=== PATIENT | female | born 1965 | race Caucasian/White ===

== ENCOUNTER 2020-03-16 06:00 | Day surgery (SDC) | payer OTHER ==
[2020-03-15 09:09] LABS: COVID AG,FIA SOURCE NASOPHARYNGEAL
[~2020-03-16] VITALS: Ht 160 cm; Wt 68.5 kg
[~2020-03-16 06:00] MED LIST: CYCLOPENTOLATE HCL 1% 2 ML OPHTHALMIC SOLUTION ONE; KETOROLAC TROMETHAMINE 0.5% 5 ML OPHTHALMIC SOLUTION ONE; MOXIFLOXACIN HCL 0.5% 3 ML OPHTHALMIC SOLUTION ONE; PHENYLEPHRINE HCL 2.5% 2 ML OPHTHALMIC SOLUTION ONE; RINGERS SOLUTION,LACTATED 500 ML IV ONE; TETRACAINE HCL/PF 0.5% 4 ML OPHTHALMIC SOLUTION OD ONE; TETRACAINE HCL/PF 0.5% 4 ML OPHTHALMIC SOLUTION ONE; TROPICAMIDE 1% 2 ML OPHTHALMIC SOLUTION ONE
[2020-03-16] MEDS ORDERED: FentaNYL CITRATE-PF 100 MCG/2 ML VIAL IVP ONE (06:01)
[2020-03-16] MEDS ORDERED: MIDAZOLAM HCL 2 MG/2 ML VIAL IVP ONE (06:01)
[2020-03-16] MEDS: KETOROLAC TROMETHAMINE 0.5% 5 ML OPHTHALMIC SOLUTION OD SCH ×3 (06:46→07:13)
[2020-03-16] MEDS: PHENYLEPHRINE HCL 2.5% 2 ML OPHTHALMIC SOLUTION OD SCH ×3 (06:46→07:13)
[2020-03-16] MEDS: TROPICAMIDE 1% 2 ML OPHTHALMIC SOLUTION OD SCH ×3 (06:46→07:13)
[2020-03-16] MEDS: CYCLOPENTOLATE HCL 1% 2 ML OPHTHALMIC SOLUTION OD SCH ×3 (06:46→07:13)
[2020-03-16] MEDS: MOXIFLOXACIN HCL 0.5% 3 ML OPHTHALMIC SOLUTION OD SCH ×3 (06:46→07:14)
[2020-03-16] MEDS ORDERED: ERTU5TAB PO (06:54)
[2020-03-16] MEDS ORDERED: HUM10VIA SQ ×2 (06:54)
[2020-03-16 07:16] LABS: GLUCOMETER DEV NAME(LOC) SDS.; GLUCOSE,POINT OF CARE 168 MG/DL (70-110)
[2020-03-16] MEDS ORDERED: AcetaZOLAMIDE SODIUM 500 MG VIAL IVP ONE (08:21)
[2020-03-16] MEDS ORDERED: SODIUM CHLORIDE 0.9% 100 ML ONE (08:23)
[2020-03-16] MEDS ORDERED: EPINEPHrine 1:1,000 [1 MG/ML] AMP ONE (18:23)
[2020-03-16] MEDS ORDERED: HYALURONATE SODIUM 12 MG/ML 0.8 ML SYRINGE IO ONE (18:23)
[2020-03-16] MEDS ORDERED: NEOMYCIN/POLYMYXIN B/DEXAMETH 3.5 GM OPHTHALMIC OINTMENT ONE (18:23)
[2020-03-16] MEDS ORDERED: POVIDONE-IODINE 10% 15 ML SOLUTION UD ONE (18:23)
[2020-03-16] MEDS ORDERED: PrednisoLONE ACETATE 1% 5 ML OPHTHALMIC SUSPENSION ONE (18:23)
[2020-03-16] MEDS ORDERED: LIDOCAINE 1% 20 ML VIAL *UNAVILABLE ONE (18:23)
== END 2020-03-16 09:50 | disposition home or self-care (01) ==
LOC: SURGERY 06:00
PROVIDERS: ATTEND Ophthalmology
DX: E11.36 Type 2 diabetes mellitus with diabetic cataract (principal); H25.11 Age-related nuclear cataract, right eye; E78.00 Pure hypercholesterolemia, unspecified; I10 Essential (primary) hypertension
CPT/HCPCS: 66984; 82962; 87426; 93005; J0171; J1120; J2250; J3010; J3490 ×2; J7050; J7120; V2632